=== PATIENT | female | born 1995 | race Hispanic/Latino ===

== ENCOUNTER → 2024-06-25 | Day surgery (SDC) | payer OTHER ==
[~2024-06-25] MED LIST: FENTANYL CITRATE/PF 100MCG/2 ML INJ ONE; GLYCOPYRROLATE INJ 0.2 MG/ML VIAL ONE; LIDOCAINE HCL 2% LOCAL INJ 5 ML SDV VIAL INJ ONE; METOCLOPRAMIDE HCL 10 MG/2ML VIAL ONE; PROPOFOL IV EMULSION 10 MG/ML 20 ML VIAL ONE
[2024-06-25] MEDS: LACTATED RINGER'S 1,000 ML ONE (09:01)
[2024-06-25] MEDS: ONDANSETRON HCL INJ 2MG/ML 2ML 2 MG/ML VIAL ONE (09:02)
[2024-06-25 10:12] VITALS: TEMP 97
[2024-06-25 10:40] VITALS: BP 121/72; PULSE 72; RESP 13; O2SAT 99
== END | disposition home or self-care (01) ==
LOC: OR 07:51
PROVIDERS: ATTEND Internal Medicine Gastroenterology
DX: K21.9 Gastro-esophageal reflux disease without esophagitis (principal); K29.50 Unspecified chronic gastritis without bleeding; K20.90 Esophagitis, unspecified without bleeding; J45.909 Unspecified asthma, uncomplicated; R01.1 Cardiac murmur, unspecified; F42.9 Obsessive-compulsive disorder, unspecified; F90.9 Attention-deficit hyperactivity disorder, unspecified type; F41.9 Anxiety disorder, unspecified; F32.A Depression, unspecified; Z88.0 Allergy status to penicillin
CPT/HCPCS: 43239; 81025; J2003; J2405; J2470; J2704; J2765; J3010; J7121

== ENCOUNTER → 2024-07-22 | Outpatient (REF) | payer OTHER | LOC: US 07:25 | PROVIDERS: ATTEND Nurse Practitioner | DX: R10.10 Upper abdominal pain, unspecified (principal); K29.60 Other gastritis without bleeding | CPT/HCPCS: 76700 ==